=== PATIENT | female | born 1980 | race Hispanic/Latino ===

== ENCOUNTER 2023-03-02 05:37 | Emergency (ER) | payer SELFPAY ==
[~2023-03-02] VITALS: Ht 154.9 cm; Wt 66.7 kg
[2023-03-02 06:56] VITALS: BP 134/76
== END 2023-03-02 06:57 | disposition home or self-care (01) ==
LOC: EDH 05:37
DX: F41.0 Panic disorder [episodic paroxysmal anxiety] (principal); I10 Essential (primary) hypertension; F41.9 Anxiety disorder, unspecified